=== PATIENT | male | born 1985 | race Caucasian/White ===

== ENCOUNTER 2017-11-11 15:56 | Emergency (ER) | payer SELFPAY ==
[2017-11-11 16:06] VITALS: BP 153/93
--- NOTE | 2017-11-11 17:31 | Emergency Department Report ---
Chief Complaint: Medical Clearance Stated Complaint: HTN, COLD, R THUMB NUMB Time Seen by Provider: 11/11/17 16:48 - HPI History of Present Illness: Patient is a 32-year-old male who is presenting with several complaints. Patient states he's got left shoulder pain after falling on his buttocks for approximately one month and states it hurts to move the shoulder although he is moving it here in the emergency department when he is distracted. Patient uses hands to lift himself up off the bed to describe how he fell one month ago. Patient also states his right numbness been thumb for 4 days and that he has a minor cough and congestion. Patient does not have any fever has been no trauma to the shoulder is been no injury to the finger. - ROS Review of Systems: Review of systems is within normal limits all systems are reviewed and negative - Exam Vital Signs: Vital Signs 11/11/17 16:02 Temperature 98.6 F Pulse Rate 86 Respiratory 16 Rate Blood Pressure 153/93 O2 Sat by Pulse 98 Oximetry Physical Exam: Patient has tenderness to the before meals joint but has full range of motion. Patient can bear weight with his left upper extremity he was able to use this extremity to lift himself off of the bed. Patient's thumb has full range of motion no swelling no redness. Patient's heart and lungs are clear to auscultation. MSE screening note: Focused history and physical exam performed. Due to findings the following was ordered: No orders were done today. Patient will be referred to orthopedics and primary care is outside medical clinic. Patient screamed out as a non-medical emergency ED Disposition for MSE Clinical Impression: Shoulder pain Qualifiers: Chronicity: chronic Laterality: left Qualified Code(s): M25.512 - Pain in left shoulder; G89.29 - Other chronic pain Disposition: Z- MED SCREENING EXAM-LEFT Is pt being admited?: No Does the pt Need Aspirin: No Condition: Stable Referrals: JAY VALADEZ MD [Staff Physician] - 3-5 Days [facility] [Outside] - 3-5 Days
== END 2017-11-11 17:42 | disposition left against medical advice (07) ==
LOC: ED 15:56
DX: M25.512 Pain in left shoulder (principal); G89.29 Other chronic pain; R05 Cough; R09.81 Nasal congestion
CPT/HCPCS: 99282